=== PATIENT | female | born 1970 | race Two or more races ===

== ENCOUNTER 2024-10-13 14:33 | Emergency (ER) | payer OTHER ==
[~2024-10-13] VITALS: Ht 157.5 cm; Wt 72.7 kg
[2024-10-13 14:42] VITALS: BP 112/61; PULSE 92; RESP 18; TEMP 98.9; O2SAT 98
[2024-10-13] MEDS: TraMADol HCL 50 MG TABLET PO ONE (16:29)
[2024-10-13] MEDS ORDERED: TRAM50TA5 PO (17:23)
== END 2024-10-13 17:41 | disposition home or self-care (01) ==
LOC: EMS 14:33
DX: M25.562 Pain in left knee (principal); J45.909 Unspecified asthma, uncomplicated
CPT/HCPCS: 99284; 73562-TC; 73610-TC; Z7502; Z7610

== ENCOUNTER 2025-06-15 12:27 | Emergency (ER) | payer OTHER ==
[~2025-06-15] VITALS: Ht 154.9 cm; Wt 53.0 kg
[~2025-06-15 12:27] MED LIST: TRAM50TA5 PO
[2025-06-15 12:33] VITALS: TEMP 97.9
[2025-06-15] MEDS ORDERED: ASPI-1450 PO (12:41)
[2025-06-15] MEDS ORDERED: GABA-1181 PO (12:41)
[2025-06-15] MEDS ORDERED: HYDR200T38 PO (12:41)
[2025-06-15] MEDS ORDERED: PROP20TA18 PO (12:41)
[2025-06-15] MEDS ORDERED: FLUO-418 PO (12:41)
[2025-06-15] MEDS ORDERED: NAPR-1196 PO (12:41)
[2025-06-15 12:50] LABS: COVID AG,FIA SOURCE NASAL SWAB
[2025-06-15 13:08] VITALS: PULSE 61; RESP 20; O2SAT 96
[2025-06-15 13:08] LABS: SARS-COV2 (COVID) ANTIGEN,FIA Negative (Negative)
[2025-06-15] MEDS: IPRATROPIUM BROMIDE 0.5 MG/2.5 ML NEB SOLUTION NEB ONE (13:08)
[2025-06-15] MEDS: ALBUTEROL SULFATE 2.5 MG/0.5 ML 5 ML NEB SOLUTION NEB ONE (13:08)
[2025-06-15 13:09] LABS: INFLUENZA TYPE A NEGATIVE FOR TYPE A (NEGATIVE); INFLUENZA TYPE B NEGATIVE FOR TYPE B (NEGATIVE)
[2025-06-15 13:10] LABS: PLATELET COUNT (AUTO) 305 K/uL (150-450); RED BLOOD CELL COUNT(AUTO) 4.11 MIL/uL (4.00-5.20); RED CELL DISTRIBUTION WIDTH 16.6 % (11.5-14.5); WHITE BLOOD COUNT (AUTO) 7.2 K/uL (4.5-11.0)
[2025-06-15 13:19] LABS: CALCIUM, TOTAL 9.6 mg/dL (8.8-10.5); CREATININE 0.97 mg/dL (0.60-1.30); GLOMERULAR FILTR. RATE CALC 60 mL/min (>60); GLUCOSE,RANDOM 86 mg/dL (70-110); SODIUM SERUM 142 mmol/L (136-145); UREA NITROGEN, BLOOD 13 mg/dL (7-18)
[2025-06-15 13:25] LABS: ASPARTATE AMINOTRANSFERASE 11.0 U/L (15-37); CREATINE KINASE, TOTAL ONLY 51.0 U/L (26-192); TOTAL PROTEIN, SERUM 7.3 g/dL (6.4-8.2)
[2025-06-15 13:27] LABS: TROPONIN I-HIGH SENSITIVITY 4 ng/L (<51)
[2025-06-15 14:15] VITALS: PULSE 65; RESP 20; O2SAT 98
[2025-06-15 14:57] VITALS: BP 112/73; PULSE 65; RESP 20; O2SAT 99
== END 2025-06-15 15:38 | disposition home or self-care (01) ==
LOC: EMS 12:46
DX: J06.9 Acute upper respiratory infection, unspecified (principal); J45.901 Unspecified asthma with (acute) exacerbation; M19.90 Unspecified osteoarthritis, unspecified site; Z79.899 Other long term (current) drug therapy; Z79.82 Long term (current) use of aspirin; Z20.822 Contact with and (suspected) exposure to COVID-19
CPT/HCPCS: 99285; 96374; 71045; 87426; 80048; 80076; 82550; 83880; 84484; 85025; 87804; 36415; 94640; 93005; J2919; 94644